=== PATIENT | female | born 1985 | race Caucasian/White ===

== ENCOUNTER 2017-01-07 17:05 | Inpatient (IN) | payer OTHER ==
[~2017-01-07] VITALS: Ht 157.5 cm; Wt 59.0 kg
[~2017-01-07 17:05] MED LIST: HEPARIN (10 UNITS/ML) 5ML SYG ONE; OXYTOCIN 10 UNIT INJ ONE; OXYTOCIN 30 UNITS/LR 500 ML BAG IV ONE
[2017-01-07] MEDS ORDERED: LACTATED RINGER'S 1,000 ML IV SCH (18:06)
[2017-01-07] MEDS ORDERED: IBUPROFEN 600 MG TAB PO PRN (18:30)
[2017-01-07] MEDS ORDERED: OXYTOCIN 30 UNITS/LR 500 ML IV SCH ×3 (18:30→23:20)
[2017-01-07] MEDS ORDERED: CARBOPROST 250 MCG INJ IM PRN ×2 (18:30→23:30)
[2017-01-07] MEDS ORDERED: METHYLERGONOVINE 0.2 MG INJ IM PRN ×2 (18:30→23:30)
[2017-01-07] MEDS ORDERED: OXYTOCIN 30 UNITS/LR 500 ML IV PRN ×2 (18:30→23:30)
[2017-01-07] MEDS ORDERED: LIDOCAINE 1% (MPF) 30 ML INJ INJ PRN (18:30)
[2017-01-07] MEDS ORDERED: MISOPROSTOL 200 MCG TAB PR PRN ×2 (18:30→23:30)
[2017-01-07] MEDS ORDERED: BUTORPHANOL 2 MG INJ IV PRN (18:30)
[2017-01-07] MEDS ORDERED: KETOROLAC 30 MG INJ IV STA ×2 (19:03→19:08)
[2017-01-07 20:30] VITALS: Ht 157.5 cm; Wt 59.0 kg
[2017-01-07 20:36] VITALS: BP 139/92; PULSE 68
[2017-01-07] MEDS ORDERED: CEFAZOLIN 2 GM/50 ML (PMX) 50 ML IVPB SCH (21:00)
[2017-01-07 21:16] LABS: BASOPHILS % 0.3 % (0.0-2.0); EOSINOPHILS # 0.1 10^3/ul (0.0-0.5); EOSINOPHILS % 0.5 % (0.0-7.0); HEMATOCRIT 26.7 % (37.0-47.0); HEMOGLOBIN 9.5 g/dl (12.0-16.0); LYMPHOCYTES # 1.6 10^3/ul (0.8-2.9); LYMPHOCYTES % 11.9 % (15.0-51.0); MEAN CORPUSCULAR HEMOGLOBIN 34.3 pg (29.0-33.0); MEAN CORPUSCULAR HGB CONC 35.6 g/dl (32.0-37.0); MEAN CORPUSCULAR VOLUME 96.4 fl (82.0-101.0); MEAN PLATELET VOLUME 9.6 fl (7.4-10.4); MONOCYTE # 0.9 10^3/ul (0.3-0.9); MONOCYTES % 6.4 % (0.0-11.0); NEUTROPHILS % 80.1 % (39.0-77.0); PLATELET COUNT 215 10^3/UL (140-415); RED BLOOD COUNT 2.77 10^6/ul (4.20-5.40); RED CELL DISTRIBUTION WIDTH 12.5 % (11.5-14.5); WHITE BLOOD COUNT 13.8 10^3/ul (4.8-10.8)
[2017-01-07 21:26] LABS: ADD UMIC NO; UR ASCORBIC ACID NEGATIVE (NEGATIVE); UR BILIRUBIN (Dip) NEGATIVE (NEGATIVE); UR BLOOD (Dip) NEGATIVE (NEGATIVE); UR CLARITY CLEAR (CLEAR); UR COLOR STRAW (YELLOW); UR GLUCOSE (Dip) NEGATIVE (NEGATIVE); UR KETONES (Dip) NEGATIVE (NEGATIVE); UR LEUKOCYTE ESTERASE (Dip) NEGATIVE Leu/ul (NEGATIVE); UR NITRITE (Dip) NEGATIVE (NEGATIVE); UR SPECIFIC GRAVITY (Dip) 1.004 (1.003-1.030); UR TOTAL PROTEIN (Dip) NEGATIVE (NEGATIVE); UR UROBILINOGEN (Dip) NEGATIVE (NEGATIVE)
[2017-01-07 21:35] LABS: INR 0.99; PROTIME 13.1 Sec (12.2-14.2)
[2017-01-07 21:36] LABS: PARTIAL THROMBOPLASTIN TIME 29.2 Sec (25.0-35.0)
[2017-01-07 21:40] LABS: ALANINE AMINOTRANSFERASE 41 IU/L (13-69); ALBUMIN 2.8 g/dl (3.3-4.9); ALBUMIN/GLOBULIN RATIO 1.12; ALKALINE PHOSPHATASE 120 IU/L (42-121); ANION GAP 16 (8-16); ASPARTATE AMINO TRANSFERASE 35 IU/L (15-46); BILIRUBIN,INDIRECT 0.1 mg/dl (0-1.1); BILIRUBIN,TOTAL 0.1 mg/dl (0.2-1.3); BLOOD UREA NITROGEN 7 mg/dl (7-20); CALCIUM 8.8 mg/dl (8.4-10.2); CARBON DIOXIDE 22 mmol/L (21-31); CHLORIDE 102 mmol/L (97-110); CREATININE 0.53 mg/dl (0.44-1.00); GLUCOSE 124 mg/dl (70-220); POTASSIUM 3.8 mmol/L (3.5-5.1); SODIUM 136 mmol/L (135-144); TOTAL PROTEIN 5.3 g/dl (6.1-8.1)
[2017-01-07 21:56] LABS: BARBITURATES Negative (NEGATIVE); BENZODIAZEPINES Negative (NEGATIVE); CANNABINOIDS Negative (NEGATIVE); COCAINE Negative (NEGATIVE); OPIATES Negative (NEGATIVE)
[2017-01-07] MEDS ORDERED: MIDAZOLAM 1 MG/ML 2 ML INJ ONE (22:16)
[2017-01-07] MEDS ORDERED: FENTAnyl 50 MCG/ML VIAL ONE (22:16)
[2017-01-07] MEDS ORDERED: LIDOCAINE 2% (SDV) 5 ML INJ ONE (22:38)
[2017-01-07] MEDS ORDERED: PROPOFOL 40 ML ONE (22:38)
[2017-01-07] MEDS ORDERED: LACTATED RINGER'S 1,000 ML IV* SCH (23:20)
[2017-01-07] MEDS ORDERED: LANOLIN 7 GM TUBE TOP PRN (23:30)
[2017-01-07] MEDS ORDERED: HYDROCODONE/APAP (5/325) TAB PO PRN (23:30)
--- NOTE | 2017-01-07 23:41 | HP ---
Date/Time of Note Date/Time of Note DATE: 01/07/17 TIME: 23:24 OB - History Hx of Present Free Text/Dictation 31 y.o. G1 with an IUP at 22 weeks and triplets conceived by injectable medications and IUI brought in by ambulance in [place] having delivered one of the babies at home. Chief Complaint: labor Estimated Due Date: May 12, 2017 : 1 Para: 0 Care: Good Care Ultrasounds: Normal mid trimester US Obstetrical Complications: Other ( labor) Medical Complications: Other (Anemia.) Other Concerns: Pt had been in [facility] for 2[facility]3 days and was just discharged today. When driving home she didn't feel well. At home her water broke and the first baby came out breech. Past Family/Social History * Past Medical, Surgical, Family and Obstetric Histories reviewed from chart. OB Admission Exam Vital Signs Vital Signs Vital Signs Date Time Temp Pulse Resp B/P Pulse Ox O2 Delivery O2 Flow Rate FiO2 01/07/17 20:36 68 139/92 Physical Exam Heart: Rhythm Normal Abdomen: WNL Extremities: Normal Reflexes: Normal Cervical Dilatation: 10cm Effacement: 100% Station: -1 Membranes: Intact Amniotic Fluid: Clear Heart Rate: 140's Accelerations: Accelerations Present Decelerations: No Decelerations Varibility: Moderate Contractions on Admission: < 5 Minutes Apart Last 72 hours [facility] with [facility] on admit. CBC & BMP 01/07/17 20:49 01/07/17 20:57 Liver Function Test 01/07/17 20:49 Alanine Aminotransferase (ALT/SGPT) 41 Albumin 2.8 L Alkaline Phosphatase 120 Aspartate Amino Transf (AST/SGOT) 35 Direct Bilirubin 0.00 Total Protein 5.3 L OB Assessment/Plan Reason for admission: labor Plan: Expectant Management Other plan: Consult quickly with neonatology and proceed accordingly. MANISHA VALLADARES MD Jan 07, 2017 23:31
--- NOTE | 2017-01-07 23:42 | LDN ---
Date/Time of Note Date/Time of Note DATE: 01/07/17 TIME: 23:33 Delivery Summary Pt was complete/complete and +2 so broke the water and the second baby delivered promptly with a minute. Had the last baby held in vertex position until the contractions brought the baby's head down, broke the water and that baby delivered promptly as well.Waited for a few hours but then had to bring the pt back to the OR for IV sedation and for manual removal of the placenta. Weeks of Gestation 22w Placenta Delivered: Manually Meconium: none Episiotomy: No Perineal laceration: 0 Laceration repair: None. Anesthesia type: Local (IV sedation for the placenta delivery) Estimated blood loss: 500 Sponge & Needle done & correct: Yes All needle counts correct: Yes Any foreign bodies felt in the: No (vagina) Problems: Infant Delivery Information Suctioning Nose & mouth suctioned at mushtaq: No Delee suction performed: No Umbilical Cord Umbilical cord with: 3 Vessels Cord Blood was obtained: No Mother & Baby Disposition Disposition Triplets male, female, male were 475, 420 and 475 grams and not resuscitated after a predelivery lengthy discussion with the parents. Mom & Baby to Maternity; Good: No Mom transferred to: Antepartum MANISHA VALLADARES MD Jan 07, 2017 23:41
[2017-01-08] MEDS ORDERED: ACETAMINOPHEN 1000MG/100ML IV 100 ML IVPB ONE (01:00)
[2017-01-08] MEDS ORDERED: KETOROLAC 30 MG INJ IV PRN (01:00)
[2017-01-08 01:11] VITALS: BP 133/83; PULSE 72; RESP 18
[2017-01-08] MEDS: IBUPROFEN 600 MG TAB PO SCH ×2 (01:48→05:59)
[2017-01-08 05:03] VITALS: BP 142/87; PULSE 77; RESP 20
[2017-01-08 08:06] VITALS: BP 132/72; PULSE 69; RESP 18
--- NOTE | 2017-01-08 08:10 | PD.PPDC ---
OCCUPATIONAL HEALTH AND SAFETY ADVISER Discharge Instruction Condition Patient Condition: Good Diet Diet: Resume Regular Diet Activity/Restrictions Activity: Normal Activity May Shower Restrictions: No Sexual Activity Nothing in the Vagina No [place] No Tampons, douche Follow-up Follow-up with Physician: 6, Week/Weeks Return to clinic for HAT BLOCKER Instructions: Fever greater than 101 Chills Worsening abdominal pain Excessive Vaginal Bleeding OB Instructions: Depression MANISHA VALLADARES MD Jan 08, 2017 08:10
--- NOTE | 2017-01-09 20:20 | DS ---
Date/Time of Note Date/Time of Note DATE: 01/09/17 TIME: 20:17 Obstetrical Discharge Record Final Diagnosis Final Diagnosis: delivered Other Final Diagnosis Pre-viable triplets Vaginal Delivery Obstetrical Delivery: Spontaneous Complications Complications: less than 7 at 5 mins, less than 4 at 1 mins, Very low weight >1500gms Complications Multiple Gestation, Labor Augmentation: No Induction: No Rupture of Membranes: Yes Gestational Age at Rupture 22 weeks Condition on Discharge Physical Assessment Last Vitals: Afebrile, normotensive Voiding: Yes Bowel Movement: Yes Breast: Soft, non-tender Fundus: Firm Patient Condition: MANISHA Abraham MD Jan 09, 2017 20:20
== END 2017-01-08 09:45 | disposition home or self-care (01) | DRG 767 ==
LOC: L-D 17:05 → OBG 01-08 01:13
PROVIDERS: ADMIT Obstetrics & Gynecology; ATTEND Obstetrics & Gynecology
PROC: 10E0XZZ Delivery of Products of Conception, External Approach (ICD-10-PCS; principal; 2017-01-07)
PROC: 10D17ZZ Extraction of Products of Conception, Retained, Via Natural or Artificial Opening (ICD-10-PCS; 2017-01-07)
DX: O60.12X0 Preterm labor second trimester with preterm delivery second trimester, not applicable or unspecified (principal); O30.102 Triplet pregnancy, unspecified number of placenta and unspecified number of amniotic sacs, second trimester; Z00-Z99 Factors influencing health status and contact with health services; Z3A.22 22 weeks gestation of pregnancy
CPT/HCPCS: 80053; 80307; 81003; 84560; 85025; 85610; 85730; 86592; 86900; 86901; 87340; 99464; J0131; J0690; J1642; J1885; J2250; J2590; J3010; J7120